=== PATIENT | male | born 1990 | race Caucasian/White ===

== ENCOUNTER 2017-09-30 19:54 | Emergency (ER) | payer SELFPAY ==
[~2017-09-30] VITALS: Ht 170.1 cm; Wt 80.3 kg
[2017-09-30 20:33] LABS: BILIRUBIN NEGATIVE (NEGATIVE); BLOOD NEGATIVE (NEGATIVE); CLARITY CLEAR (CLEAR); COLOR YELLOW (YELLOW); GLUCOSE NEGATIVE (NEGATIVE); KETONE NEGATIVE (NEGATIVE); LEUKO ESTERASE NEGATIVE (NEGATIVE); NITRITE NEGATIVE (NEGATIVE); SPECIFIC GRAVITY <= 1.005 (1.005-1.030); UROBILINOGEN 0.2 E.U./dl (0.2-1.0)
[2017-09-30 20:40] LABS: BACTERIA TRACE; EPITHELIAL CELLS 0-2; RBC 0-2 rbc/hpf (0-2); WBC 0-2 wbc/hpf (0-5)
[2017-09-30 20:45] LABS: BASO # 0.1 10*3/uL (0.0-0.1); BASO % 0.7 % (0.0-1.0); EOS # 0.2 10*3/uL (0.0-0.4); EOS % 2.4 % (1.0-4.0); HEMATOCRIT 47.1 % (42.0-52.0); HEMOGLOBIN 16.6 g/dl (14.0-18.0); LYMPH # 2.7 10*3/uL (1.3-4.4); MEAN CELL VOLUME 93.1 fl (80.0-94.0); MEAN CORPUSCULAR HGB 32.8 pg (27.0-31.0); MEAN CORPUSCULAR HGB CONC 35.2 g/dl (33.0-37.0); MONO # 0.4 10*3/uL (0.1-1.0); MONO % 5.1 % (3.0-9.0); NEUT # 4.9 10*3/uL (2.3-7.9); NEUT % 58.6 % (47.0-73.0); PLATELET COUNT AUTOMATED 260 10*3/uL (130-400); RED BLOOD COUNT 5.06 10*6/uL (4.50-5.90); RED CELL DISTRI WIDTH 12.2 % (0-14.5); WHITE BLOOD COUNT 8.3 10*3/uL (4.8-10.8)
[2017-09-30 21:03] LABS: ALBUMIN 4.4 gm/dl (3.1-4.5); ALKALINE PHOSPHATASE 94 U/L (45-117); BUN 9 mg/dl (7-24); CHLORIDE 106 mmol/L (98-107); CREATININE 0.89 mg/dL (0.70-1.30); POTASSIUM 3.9 mmol/L (3.5-5.1); SGOT/AST 32 IU/L (3-35); SGPT/ALT 45 U/L (12-78); SODIUM 142 mmol/L (136-145); TOTAL PROTEIN 8.2 gm/dL (6.4-8.2)
[2017-09-30 21:58] LABS: URINE AMPHETAMINES < 1000 (1000ng/ml); URINE BARBITURATES < 200 (200ng/ml); URINE BENZODIAZEPINES < 200 (200ng/ml); URINE CANNABINOIDS (THC) < 50 (50ng/ml); URINE COCAINE < 300 (300ng/ml); URINE METHADONE < 300 (300ng/ml); URINE OPIATES < 300 (300ng/ml)
[2017-09-30 22:01] LABS: URINE PHENCYCLIDINE < 25 (25ng/ml)
== END 2017-09-30 21:30 | disposition home or self-care (01) ==
LOC: ED 19:54
PROVIDERS: Emergency Medicine Emergency Medical Services
DX: N23 Unspecified renal colic (principal); F10.129 Alcohol abuse with intoxication, unspecified; F17.200 Nicotine dependence, unspecified, uncomplicated; Z88.8 Allergy status to other drugs, medicaments and biological substances; Z87.442 Personal history of urinary calculi

== ENCOUNTER 2017-10-21 17:02 | Emergency (ER) | payer SELFPAY ==
[~2017-10-21] VITALS: Ht 172.7 cm; Wt 77.1 kg
[2017-10-21] MEDS ORDERED: CYCLOBENZAPRINE5 M3 PO (18:35)
[2017-10-21] MEDS ORDERED: NAPROSYN500 MG PO (18:35)
== END 2017-10-21 18:06 | disposition home or self-care (01) ==
LOC: ED 17:02
DX: R07.89 Other chest pain (principal); M79.1 Myalgia; F17.200 Nicotine dependence, unspecified, uncomplicated; F10.10 Alcohol abuse, uncomplicated; Z91.09 Other allergy status, other than to drugs and biological substances

== ENCOUNTER 2018-02-19 09:57 | Emergency (ER) | payer SELFPAY ==
[~2018-02-19] VITALS: Ht 162.5 cm; Wt 81.6 kg
[~2018-02-19 09:57] MED LIST: CYCLOBENZAPRINE5 M3 PO; NAPROSYN500 MG PO
[2018-02-19 10:31] LABS: BASO # 0.1 10*3/uL (0.0-0.1); BASO % 0.4 % (0.0-1.0); EOS # 0.2 10*3/uL (0.0-0.4); EOS % 1.6 % (1.0-4.0); HEMATOCRIT 45.7 % (42.0-52.0); HEMOGLOBIN 16.3 g/dl (14.0-18.0); LYMPH # 1.9 10*3/uL (1.3-4.4); LYMPH % 13.3 % (27.0-41.0); MEAN CORPUSCULAR HGB 32.8 pg (27.0-31.0); MEAN CORPUSCULAR HGB CONC 35.7 g/dl (33.0-37.0); MONO # 1.3 10*3/uL (0.1-1.0); MONO % 9.1 % (3.0-9.0); NEUT # 10.6 10*3/uL (2.3-7.9); PLATELET COUNT AUTOMATED 211 10*3/uL (130-400); RED BLOOD COUNT 4.97 10*6/uL (4.50-5.90); RED CELL DISTRI WIDTH 11.9 % (0-14.5); WHITE BLOOD COUNT 14.2 10*3/uL (4.8-10.8)
[2018-02-19 10:49] LABS: ALBUMIN 3.9 gm/dl (3.1-4.5); ALKALINE PHOSPHATASE 88 U/L (45-117); BUN 17 mg/dl (7-24); CHLORIDE 102 mmol/L (98-107); CREATININE 0.99 mg/dL (0.70-1.30); SGOT/AST 22 IU/L (3-35); SGPT/ALT 42 U/L (12-78); SODIUM 135 mmol/L (136-145); TOTAL PROTEIN 7.8 gm/dL (6.4-8.2)
[2018-02-19 10:51] LABS: TROPONIN I < 0.015 ng/ml (<0.045)
[2018-02-19] MEDS ORDERED: ZITHROMAX250 MG PO (11:28)
== END 2018-02-19 11:43 | disposition left against medical advice (07) ==
LOC: ED 09:57
PROVIDERS: Nurse Practitioner
DX: J02.9 Acute pharyngitis, unspecified (principal)

== ENCOUNTER 2018-12-22 00:06 | Emergency (ER) | payer OTHER ==
[~2018-12-22] VITALS: Ht 177.8 cm; Wt 81.6 kg
[~2018-12-22 00:06] MED LIST changes: +CYCLOBENZAPRINE10 MG PO; +PREDNISONE50 MG PO; +ZITHROMAX250 MG PO
[2018-12-22 00:33] LABS: BASO # 0.1 10*3/uL (0.0-0.1); EOS # 0.4 10*3/uL (0.0-0.4); EOS % 4.9 % (1.0-4.0); HEMATOCRIT 45.7 % (42.0-52.0); HEMOGLOBIN 16.2 g/dl (14.0-18.0); LYMPH # 1.9 10*3/uL (1.3-4.4); LYMPH % 24.4 % (27.0-41.0); MEAN CELL VOLUME 94.2 fl (80.0-94.0); MEAN CORPUSCULAR HGB 33.4 pg (27.0-31.0); MEAN CORPUSCULAR HGB CONC 35.4 g/dl (33.0-37.0); MEAN PLATELET VOLUME 10.3 fl (9.6-12.3); MONO # 0.6 10*3/uL (0.1-1.0); MONO % 7.6 % (3.0-9.0); NEUT # 4.8 10*3/uL (2.3-7.9); PLATELET COUNT AUTOMATED 252 10*3/uL (130-400); RED BLOOD COUNT 4.85 10*6/uL (4.50-5.90); RED CELL DISTRI WIDTH 11.8 % (0-14.5); WHITE BLOOD COUNT 7.7 10*3/uL (4.8-10.8)
[2018-12-22 00:49] LABS: ALBUMIN 4.4 gm/dl (3.1-4.5); ALKALINE PHOSPHATASE 105 U/L (45-117); BUN 14 mg/dl (7-24); CHLORIDE 106 mmol/L (98-107); CREATININE 1.04 mg/dL (0.70-1.30); POTASSIUM 3.5 mmol/L (3.5-5.1); SGOT/AST 18 IU/L (3-35); SGPT/ALT 28 U/L (12-78); SODIUM 138 mmol/L (136-145); TOTAL PROTEIN 7.7 gm/dL (6.4-8.2)
[2018-12-22 00:52] LABS: ACETAMINOPHEN (TYLENOL) < 5.0 ug/ml (10-30); ETHYL ALCOHOL < 3.0 mg/dl (<3)
[2019-01-24] MEDS ORDERED: ZITHROMAX250 MG PO (23:58)
[2019-01-24] MEDS ORDERED: Motrin,Rufen800 MG PO (23:58)
[2019-01-29] MEDS ORDERED: TESSALON PERLE100 MG PO (21:40)
[2019-01-29] MEDS ORDERED: PREDNISONE20 M1 PO (21:40)
[2019-02-13] MEDS ORDERED: Motrin,Rufen800 MG PO (01:38)
[2019-02-19] MEDS ORDERED: PROAIR HFA8.5 GM INH (22:00)
[2019-02-19] MEDS ORDERED: VENTOLIN 02.5 MG/3 M INH (22:01)
[2019-02-19] MEDS ORDERED: PROTONIX40 MG PO (22:01)
[2019-03-30] MEDS ORDERED: CETIRIZINE10 MG PO (15:12)
[2019-03-30] MEDS ORDERED: FLONASE ALLERG9.9 ML NAS (15:12)
[2019-04-08] MEDS ORDERED: AMOXICILLIN500 M2 PO (21:16)
[2019-04-08] MEDS ORDERED: FLONASE ALLERG9.9 ML NAS (21:16)
[2019-04-08] MEDS ORDERED: NASAL DECONGEST30 MG PO (21:16)
== END 2018-12-22 01:49 | disposition home or self-care (01) ==
LOC: ED 00:06
PROVIDERS: Student in an Organized Health Care Education/Training Program
DX: F41.9 Anxiety disorder, unspecified (principal); G25.1 Drug-induced tremor; R00.2 Palpitations; F12.90 Cannabis use, unspecified, uncomplicated; Z91.048 Other nonmedicinal substance allergy status; Z87.442 Personal history of urinary calculi

== ENCOUNTER 2019-02-03 21:38 | Emergency (ER) | payer OTHER ==
[~2019-02-03] VITALS: Wt 86.2 kg
--- NOTE | ~2019-02-03 | EKG ---
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
[~2019-02-03 21:38] MED LIST changes: +Motrin,Rufen800 MG PO; +PREDNISONE20 M1 PO; +TESSALON PERLE100 MG PO
[2019-02-03 22:01] LABS: BASO % 0.5 % (0.0-1.0); EOS # 0.1 10*3/uL (0.0-0.4); EOS % 1.4 % (1.0-4.0); HEMATOCRIT 43.5 % (42.0-52.0); HEMOGLOBIN 15.2 g/dl (14.0-18.0); LYMPH # 2.3 10*3/uL (1.3-4.4); LYMPH % 27.7 % (27.0-41.0); MEAN CORPUSCULAR HGB 33.6 pg (27.0-31.0); MEAN CORPUSCULAR HGB CONC 34.9 g/dl (33.0-37.0); MONO # 0.7 10*3/uL (0.1-1.0); MONO % 7.8 % (3.0-9.0); NEUT # 5.2 10*3/uL (2.3-7.9); NEUT % 62.2 % (47.0-73.0); PLATELET COUNT AUTOMATED 230 10*3/uL (130-400); RED BLOOD COUNT 4.53 10*6/uL (4.50-5.90); RED CELL DISTRI WIDTH 11.9 % (0-14.5); WHITE BLOOD COUNT 8.4 10*3/uL (4.8-10.8)
[2019-02-03 22:17] LABS: ALBUMIN 3.8 gm/dl (3.1-4.5); ALKALINE PHOSPHATASE 90 U/L (45-117); BUN 16 mg/dl (7-24); CHLORIDE 107 mmol/L (98-107); POTASSIUM 3.4 mmol/L (3.5-5.1); SGOT/AST 27 IU/L (3-35); SGPT/ALT 28 U/L (12-78); SODIUM 142 mmol/L (136-145); TOTAL PROTEIN 7.1 gm/dL (6.4-8.2)
[2019-02-03 22:25] LABS: TROPONIN I < 0.015 ng/ml (<0.045)
[2019-02-04] MEDS ORDERED: PROTONIX40 MG PO (21:35)
[2019-02-04] MEDS ORDERED: HYDROXYZINE HCL25 MG PO (21:35)
[2019-02-13] MEDS ORDERED: Motrin,Rufen800 MG PO (01:38)
[2019-02-19] MEDS ORDERED: PROAIR HFA8.5 GM INH (22:00)
[2019-02-19] MEDS ORDERED: PROTONIX40 MG PO (22:01)
[2019-02-19] MEDS ORDERED: VENTOLIN 02.5 MG/3 M INH (22:01)
[2019-03-30] MEDS ORDERED: FLONASE ALLERG9.9 ML NAS (15:12)
[2019-03-30] MEDS ORDERED: CETIRIZINE10 MG PO (15:12)
[2019-04-08] MEDS ORDERED: NASAL DECONGEST30 MG PO (21:16)
[2019-04-08] MEDS ORDERED: AMOXICILLIN500 M2 PO (21:16)
[2019-04-08] MEDS ORDERED: FLONASE ALLERG9.9 ML NAS (21:16)
== END 2019-02-03 22:45 | disposition home or self-care (01) ==
LOC: ED 21:38
PROVIDERS: Student in an Organized Health Care Education/Training Program
DX: R07.89 Other chest pain (principal); Z91.048 Other nonmedicinal substance allergy status; Z79.899 Other long term (current) drug therapy

== ENCOUNTER 2019-02-04 20:08 | Emergency (ER) | payer OTHER ==
[~2019-02-04] VITALS: Wt 86.2 kg
[2019-02-04 20:50] LABS: BASO % 0.4 % (0.0-1.0); EOS # 0.1 10*3/uL (0.0-0.4); EOS % 1.2 % (1.0-4.0); HEMATOCRIT 43.7 % (42.0-52.0); HEMOGLOBIN 15.2 g/dl (14.0-18.0); LYMPH # 2.4 10*3/uL (1.3-4.4); LYMPH % 26.2 % (27.0-41.0); MEAN CELL VOLUME 96.9 fl (80.0-94.0); MEAN CORPUSCULAR HGB 33.7 pg (27.0-31.0); MEAN CORPUSCULAR HGB CONC 34.8 g/dl (33.0-37.0); MEAN PLATELET VOLUME 10.7 fl (9.6-12.3); MONO # 0.7 10*3/uL (0.1-1.0); MONO % 7.7 % (3.0-9.0); NEUT # 5.9 10*3/uL (2.3-7.9); NEUT % 64.3 % (47.0-73.0); PLATELET COUNT AUTOMATED 243 10*3/uL (130-400); RED BLOOD COUNT 4.51 10*6/uL (4.50-5.90); RED CELL DISTRI WIDTH 11.9 % (0-14.5); WHITE BLOOD COUNT 9.2 10*3/uL (4.8-10.8)
[2019-02-04 21:03] LABS: ALBUMIN 4.1 gm/dl (3.1-4.5); ALKALINE PHOSPHATASE 85 U/L (45-117); BUN 14 mg/dl (7-24); CHLORIDE 105 mmol/L (98-107); CREATININE 0.76 mg/dL (0.70-1.30); LIPASE 54 U/L (73-393); POTASSIUM 3.8 mmol/L (3.5-5.1); SGOT/AST 27 IU/L (3-35); SGPT/ALT 33 U/L (12-78); SODIUM 139 mmol/L (136-145); TOTAL PROTEIN 7.5 gm/dL (6.4-8.2)
[2019-02-04] MEDS ORDERED: HYDROXYZINE HCL25 MG PO (21:35)
[2019-02-04] MEDS ORDERED: PROTONIX40 MG PO (21:35)
[2019-02-13] MEDS ORDERED: Motrin,Rufen800 MG PO (01:38)
[2019-02-19] MEDS ORDERED: PROAIR HFA8.5 GM INH (22:00)
[2019-02-19] MEDS ORDERED: VENTOLIN 02.5 MG/3 M INH (22:01)
[2019-02-19] MEDS ORDERED: PROTONIX40 MG PO (22:01)
[2019-03-30] MEDS ORDERED: FLONASE ALLERG9.9 ML NAS (15:12)
[2019-03-30] MEDS ORDERED: CETIRIZINE10 MG PO (15:12)
[2019-04-08] MEDS ORDERED: NASAL DECONGEST30 MG PO (21:16)
[2019-04-08] MEDS ORDERED: AMOXICILLIN500 M2 PO (21:16)
[2019-04-08] MEDS ORDERED: FLONASE ALLERG9.9 ML NAS (21:16)
== END 2019-02-04 21:36 | disposition home or self-care (01) ==
LOC: ED 20:08
PROVIDERS: Physician Assistant
DX: F41.9 Anxiety disorder, unspecified (principal); R05 Cough; R07.9 Chest pain, unspecified; R10.9 Unspecified abdominal pain; F17.200 Nicotine dependence, unspecified, uncomplicated; Z91.048 Other nonmedicinal substance allergy status; Z79.899 Other long term (current) drug therapy

== ENCOUNTER 2019-02-07 22:11 | Emergency (ER) | payer OTHER ==
[~2019-02-07] VITALS: Ht 175.2 cm; Wt 86.2 kg
[~2019-02-07 22:11] MED LIST changes: +HYDROXYZINE HCL25 MG PO; +PROTONIX40 MG PO
[2019-02-07] MEDS ORDERED: AMOXICILLIN500 M2 PO (23:42)
[2019-02-07] MEDS ORDERED: PROAIR HFA8.5 GM INH (23:42)
[2019-02-13] MEDS ORDERED: Motrin,Rufen800 MG PO (01:38)
[2019-02-19] MEDS ORDERED: PROAIR HFA8.5 GM INH (22:00)
[2019-02-19] MEDS ORDERED: PROTONIX40 MG PO (22:01)
[2019-02-19] MEDS ORDERED: VENTOLIN 02.5 MG/3 M INH (22:01)
[2019-03-30] MEDS ORDERED: CETIRIZINE10 MG PO (15:12)
[2019-03-30] MEDS ORDERED: FLONASE ALLERG9.9 ML NAS (15:12)
[2019-04-08] MEDS ORDERED: FLONASE ALLERG9.9 ML NAS (21:16)
[2019-04-08] MEDS ORDERED: AMOXICILLIN500 M2 PO (21:16)
[2019-04-08] MEDS ORDERED: NASAL DECONGEST30 MG PO (21:16)
== END 2019-02-08 00:25 | disposition home or self-care (01) ==
LOC: ED 22:11
DX: J20.9 Acute bronchitis, unspecified (principal); H65.92 Unspecified nonsuppurative otitis media, left ear; F17.200 Nicotine dependence, unspecified, uncomplicated

== ENCOUNTER 2019-02-16 04:39 | Emergency (ER) | payer OTHER ==
[~2019-02-16] VITALS: Ht 175.2 cm; Wt 86.2 kg
--- NOTE | ~2019-02-16 | EKG ---
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1990 Requested By: TRISTAN FERNANDEZ Order Number: [id number] Reading MD: Giovanny Dykes Measurements Intervals [place] Rate: 104 P: 64 MS: 157 QRS: 57 QRSD: 87 T: -16 QT: 328 QTc: 432 Interpretive Statements Sinus tachycardia LAE, consider biatrial enlargement Anterior infarct, old Borderline T abnormalities, inferior leads Compared to ECG 02/03/2019 21:51:38 T-wave abnormality now present Sinus rhythm no longer present Myocardial infarct finding still present Electronically Signed On 02-18-2019 4:51:22 PDT by Giovanny Dykes CM:EKGRPT:ELECTROCARDIOGRAM REPORT [id number] TRISTAN CHRISTOPHER DRAFT REPORT TRISTAN FERNANDEZ DO
[~2019-02-16 04:39] MED LIST changes: +AMOXICILLIN500 M2 PO; +PROAIR HFA8.5 GM INH
[2019-02-16 05:48] LABS: BASO # 0.1 10*3/uL (0.0-0.1); BASO % 0.5 % (0.0-1.0); EOS # 0.2 10*3/uL (0.0-0.4); EOS % 1.5 % (1.0-4.0); HEMATOCRIT 50.3 % (42.0-52.0); LYMPH # 2.3 10*3/uL (1.3-4.4); LYMPH % 22.9 % (27.0-41.0); MEAN CELL VOLUME 97.5 fl (80.0-94.0); MEAN CORPUSCULAR HGB 32.9 pg (27.0-31.0); MEAN CORPUSCULAR HGB CONC 33.8 g/dl (33.0-37.0); MEAN PLATELET VOLUME 10.8 fl (9.6-12.3); MONO # 0.4 10*3/uL (0.1-1.0); MONO % 4.2 % (3.0-9.0); NEUT % 70.7 % (47.0-73.0); PLATELET COUNT AUTOMATED 245 10*3/uL (130-400); RED BLOOD COUNT 5.16 10*6/uL (4.50-5.90); RED CELL DISTRI WIDTH 11.8 % (0-14.5); WHITE BLOOD COUNT 9.9 10*3/uL (4.8-10.8)
[2019-02-16 06:12] LABS: ALBUMIN 4.6 gm/dl (3.1-4.5); ALKALINE PHOSPHATASE 93 U/L (45-117); BUN 9 mg/dl (7-24); CHLORIDE 105 mmol/L (98-107); CREATININE 0.87 mg/dL (0.70-1.30); POTASSIUM 3.9 mmol/L (3.5-5.1); SGOT/AST 24 IU/L (3-35); SGPT/ALT 29 U/L (12-78); SODIUM 140 mmol/L (136-145); TOTAL PROTEIN 8.5 gm/dL (6.4-8.2)
[2019-02-16 06:17] LABS: ACT PARTIAL THROMBO TIME 24.7 SECONDS (20.8-31.5)
[2019-02-16 06:18] LABS: TROPONIN I < 0.015 ng/ml (<0.045)
[2019-02-19] MEDS ORDERED: PROAIR HFA8.5 GM INH (22:00)
[2019-02-19] MEDS ORDERED: VENTOLIN 02.5 MG/3 M INH (22:01)
[2019-02-19] MEDS ORDERED: PROTONIX40 MG PO (22:01)
[2019-03-30] MEDS ORDERED: FLONASE ALLERG9.9 ML NAS (15:12)
[2019-03-30] MEDS ORDERED: CETIRIZINE10 MG PO (15:12)
[2019-04-08] MEDS ORDERED: FLONASE ALLERG9.9 ML NAS (21:16)
[2019-04-08] MEDS ORDERED: AMOXICILLIN500 M2 PO (21:16)
[2019-04-08] MEDS ORDERED: NASAL DECONGEST30 MG PO (21:16)
== END 2019-02-16 06:34 | disposition home or self-care (01) ==
LOC: ED 04:39
PROVIDERS: Student in an Organized Health Care Education/Training Program
DX: R06.02 Shortness of breath (principal); R07.89 Other chest pain; Z91.048 Other nonmedicinal substance allergy status; Z87.442 Personal history of urinary calculi

== ENCOUNTER 2019-02-16 08:14 | Emergency (ER) | payer OTHER ==
[~2019-02-16] VITALS: Ht 175.2 cm; Wt 86.2 kg
--- NOTE | ~2019-02-16 | EKG ---
[place], [place] ELECTROCARDIOGRAM REPORT NAME: CRISTOBAL BURGESS UNIT #: [id number] ROOM: DOCTOR: EPIPHANY DRAFT REPORT BIRTHDATE: [birth year] 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: Katt Martinez : 1990 Requested By: KOLTON FARAH Order Number: [id number] Reading MD: Giovanny Dykes Measurements Intervals [place] Rate: 97 P: 61 [place]: 144 QRS: 61 QRSD: 89 T: -2 QT: 330 QTc: 419 Interpretive Statements Sinus rhythm LAE, consider biatrial enlargement Probable anteroseptal infarct, old Borderline T abnormalities, inferior leads Compared to ECG 02/03/2019 21:51:38 T-wave abnormality now present Myocardial infarct finding still present Electronically Signed On 02-18-2019 4:51:58 PDT by Giovanny Dykes CM:EKGRPT:ELECTROCARDIOGRAM REPORT [id number] KOLTON PEREZ DRAFT REPORT KOLTON FARAH M.D.
--- NOTE | ~2019-02-16 | EKG ---
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
[2019-02-16 08:29] LABS: BASO # 0.1 10*3/uL (0.0-0.1); BASO % 0.5 % (0.0-1.0); EOS # 0.1 10*3/uL (0.0-0.4); HEMATOCRIT 48.2 % (42.0-52.0); HEMOGLOBIN 16.9 g/dl (14.0-18.0); LYMPH # 1.8 10*3/uL (1.3-4.4); LYMPH % 16.5 % (27.0-41.0); MEAN CELL VOLUME 95.6 fl (80.0-94.0); MEAN CORPUSCULAR HGB 33.5 pg (27.0-31.0); MEAN CORPUSCULAR HGB CONC 35.1 g/dl (33.0-37.0); MONO # 0.5 10*3/uL (0.1-1.0); MONO % 4.6 % (3.0-9.0); NEUT # 8.6 10*3/uL (2.3-7.9); NEUT % 77.2 % (47.0-73.0); PLATELET COUNT AUTOMATED 280 10*3/uL (130-400); RED BLOOD COUNT 5.04 10*6/uL (4.50-5.90); RED CELL DISTRI WIDTH 11.8 % (0-14.5); WHITE BLOOD COUNT 11.1 10*3/uL (4.8-10.8)
[2019-02-16 08:57] LABS: ALBUMIN 4.6 gm/dl (3.1-4.5); ALKALINE PHOSPHATASE 100 U/L (45-117); BUN 10 mg/dl (7-24); CHLORIDE 106 mmol/L (98-107); POTASSIUM 4.1 mmol/L (3.5-5.1); SGOT/AST 29 IU/L (3-35); SGPT/ALT 33 U/L (12-78); SODIUM 140 mmol/L (136-145); TOTAL PROTEIN 8.4 gm/dL (6.4-8.2)
[2019-02-16 09:09] LABS: TROPONIN I < 0.015 ng/ml (<0.045)
[2019-02-16 09:17] LABS: ACT PARTIAL THROMBO TIME 25.2 SECONDS (20.8-31.5)
[2019-02-19] MEDS ORDERED: PROAIR HFA8.5 GM INH (22:00)
[2019-02-19] MEDS ORDERED: PROTONIX40 MG PO (22:01)
[2019-02-19] MEDS ORDERED: VENTOLIN 02.5 MG/3 M INH (22:01)
[2019-03-30] MEDS ORDERED: FLONASE ALLERG9.9 ML NAS (15:12)
[2019-03-30] MEDS ORDERED: CETIRIZINE10 MG PO (15:12)
[2019-04-08] MEDS ORDERED: FLONASE ALLERG9.9 ML NAS (21:16)
[2019-04-08] MEDS ORDERED: NASAL DECONGEST30 MG PO (21:16)
[2019-04-08] MEDS ORDERED: AMOXICILLIN500 M2 PO (21:16)
== END 2019-02-16 11:30 | disposition home or self-care (01) ==
LOC: ED 08:14
PROVIDERS: Emergency Medicine
DX: F41.9 Anxiety disorder, unspecified (principal); R07.89 Other chest pain

== ENCOUNTER 2019-02-17 21:45 | Emergency (ER) | payer OTHER ==
[~2019-02-17] VITALS: Ht 175.2 cm; Wt 86.2 kg
[2019-02-19] MEDS ORDERED: PROAIR HFA8.5 GM INH (22:00)
[2019-02-19] MEDS ORDERED: PROTONIX40 MG PO (22:01)
[2019-02-19] MEDS ORDERED: VENTOLIN 02.5 MG/3 M INH (22:01)
[2019-03-30] MEDS ORDERED: CETIRIZINE10 MG PO (15:12)
[2019-03-30] MEDS ORDERED: FLONASE ALLERG9.9 ML NAS (15:12)
[2019-04-08] MEDS ORDERED: NASAL DECONGEST30 MG PO (21:16)
[2019-04-08] MEDS ORDERED: FLONASE ALLERG9.9 ML NAS (21:16)
[2019-04-08] MEDS ORDERED: AMOXICILLIN500 M2 PO (21:16)
== END 2019-02-18 01:45 | disposition home or self-care (01) ==
LOC: ED 21:45
DX: F41.9 Anxiety disorder, unspecified (principal); Z91.048 Other nonmedicinal substance allergy status

== ENCOUNTER 2019-05-16 22:16 | Emergency (ER) | payer OTHER ==
[~2019-05-16] VITALS: Ht 180.3 cm; Wt 83.9 kg
--- NOTE | ~2019-05-16 | EKG ---
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
[~2019-05-16 22:16] MED LIST changes: +CETIRIZINE10 MG PO; +FLONASE ALLERG9.9 ML NAS; +NASAL DECONGEST30 MG PO; +VENTOLIN 02.5 MG/3 M INH
[2019-05-16 22:40] LABS: BASO # 0.1 10*3/uL (0.0-0.1); BASO % 0.7 % (0.0-1.0); EOS # 0.4 10*3/uL (0.0-0.4); EOS % 3.5 % (1.0-4.0); HEMATOCRIT 46.5 % (42.0-52.0); HEMOGLOBIN 16.1 g/dl (14.0-18.0); LYMPH # 2.7 10*3/uL (1.3-4.4); LYMPH % 26.7 % (27.0-41.0); MEAN CELL VOLUME 95.5 fl (80.0-94.0); MEAN CORPUSCULAR HGB 33.1 pg (27.0-31.0); MEAN CORPUSCULAR HGB CONC 34.6 g/dl (33.0-37.0); MEAN PLATELET VOLUME 10.2 fl (9.6-12.3); MONO # 0.8 10*3/uL (0.1-1.0); MONO % 7.5 % (3.0-9.0); NEUT # 6.2 10*3/uL (2.3-7.9); NEUT % 61.1 % (47.0-73.0); PLATELET COUNT AUTOMATED 226 10*3/uL (130-400); RED BLOOD COUNT 4.87 10*6/uL (4.50-5.90); WHITE BLOOD COUNT 10.2 10*3/uL (4.8-10.8)
[2019-05-16 22:53] LABS: ACT PARTIAL THROMBO TIME 27.1 SECONDS (20.0-32.1)
[2019-05-16 23:01] LABS: ALKALINE PHOSPHATASE 85 U/L (45-117); BUN 19 mg/dl (7-24); CHLORIDE 104 mmol/L (98-107); CREATININE 0.79 mg/dL (0.70-1.30); POTASSIUM 3.6 mmol/L (3.5-5.1); SGOT/AST 19 IU/L (3-35); SGPT/ALT 32 U/L (12-78); SODIUM 140 mmol/L (136-145); TOTAL PROTEIN 7.4 gm/dL (6.4-8.2)
[2019-05-16 23:07] LABS: TROPONIN I < 0.015 ng/ml (<0.045)
[2019-05-17] MEDS ORDERED: ZESTRIL10 MG PO (09:10)
== END 2019-05-17 | disposition home or self-care (01) ==
LOC: ED 22:16
PROVIDERS: Student in an Organized Health Care Education/Training Program
DX: R07.89 Other chest pain (principal)

== ENCOUNTER 2019-05-18 03:06 | Emergency (ER) | payer OTHER ==
[~2019-05-18] VITALS: Ht 175.2 cm; Wt 90.7 kg
--- NOTE | ~2019-05-18 | EKG ---
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
[~2019-05-18 03:06] MED LIST changes: +ZESTRIL10 MG PO
[2019-05-18 03:37] LABS: BASO # 0.1 10*3/uL (0.0-0.1); BASO % 0.7 % (0.0-1.0); EOS # 0.3 10*3/uL (0.0-0.4); EOS % 4.5 % (1.0-4.0); HEMATOCRIT 44.2 % (42.0-52.0); HEMOGLOBIN 14.9 g/dl (14.0-18.0); LYMPH # 2.3 10*3/uL (1.3-4.4); LYMPH % 32.2 % (27.0-41.0); MEAN CELL VOLUME 97.1 fl (80.0-94.0); MEAN CORPUSCULAR HGB 32.7 pg (27.0-31.0); MEAN CORPUSCULAR HGB CONC 33.7 g/dl (33.0-37.0); MEAN PLATELET VOLUME 9.7 fl (9.6-12.3); MONO # 0.6 10*3/uL (0.1-1.0); MONO % 8.8 % (3.0-9.0); NEUT # 3.8 10*3/uL (2.3-7.9); NEUT % 53.5 % (47.0-73.0); PLATELET COUNT AUTOMATED 192 10*3/uL (130-400); RED BLOOD COUNT 4.55 10*6/uL (4.50-5.90); RED CELL DISTRI WIDTH 12.2 % (0-14.5); WHITE BLOOD COUNT 7.2 10*3/uL (4.8-10.8)
[2019-05-18 03:48] LABS: ACT PARTIAL THROMBO TIME 26.3 SECONDS (20.0-32.1)
[2019-05-18 03:54] LABS: ALBUMIN 3.6 gm/dl (3.1-4.5); ALKALINE PHOSPHATASE 75 U/L (45-117); BUN 14 mg/dl (7-24); CHLORIDE 105 mmol/L (98-107); CREATININE 0.78 mg/dL (0.70-1.30); SGOT/AST 19 IU/L (3-35); SGPT/ALT 30 U/L (12-78); SODIUM 141 mmol/L (136-145); TOTAL PROTEIN 6.7 gm/dL (6.4-8.2)
[2019-05-18 03:55] LABS: TROPONIN I < 0.015 ng/ml (<0.045)
== END 2019-05-18 04:10 | disposition home or self-care (01) ==
LOC: ED 03:06
PROVIDERS: Student in an Organized Health Care Education/Training Program
DX: R07.9 Chest pain, unspecified (principal); I10 Essential (primary) hypertension; Z91.048 Other nonmedicinal substance allergy status; Z79.899 Other long term (current) drug therapy

== ENCOUNTER 2019-05-27 10:31 | Emergency (ER) | payer OTHER ==
[~2019-05-27] VITALS: Ht 175.2 cm; Wt 86.2 kg
[2019-05-27] MEDS ORDERED: Motrin,Rufen800 MG PO (12:23)
== END 2019-05-27 12:20 | disposition home or self-care (01) ==
LOC: ED 10:31
DX: S02.2XXA Fracture of nasal bones, initial encounter for closed fracture (principal); Z91.048 Other nonmedicinal substance allergy status; Z79.899 Other long term (current) drug therapy; W22.8XXA Striking against or struck by other objects, initial encounter; Y93.89 Activity, other specified; Y92.89 Other specified places as the place of occurrence of the external cause; Y99.8 Other external cause status

== ENCOUNTER 2019-06-12 16:08 | Emergency (ER) | payer OTHER ==
[~2019-06-12] VITALS: Ht 175.2 cm; Wt 86.2 kg
--- NOTE | ~2019-06-12 | EKG ---
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
[2019-06-12 16:20] LABS: BASO # 0.1 10*3/uL (0.0-0.1); EOS # 0.4 10*3/uL (0.0-0.4); EOS % 3.8 % (1.0-4.0); HEMATOCRIT 46.3 % (42.0-52.0); HEMOGLOBIN 16.4 g/dl (14.0-18.0); LYMPH # 2.9 10*3/uL (1.3-4.4); MEAN CELL VOLUME 95.9 fl (80.0-94.0); MEAN CORPUSCULAR HGB CONC 35.4 g/dl (33.0-37.0); MEAN PLATELET VOLUME 10.1 fl (9.6-12.3); MONO # 0.7 10*3/uL (0.1-1.0); MONO % 6.2 % (3.0-9.0); NEUT # 7.3 10*3/uL (2.3-7.9); NEUT % 63.6 % (47.0-73.0); PLATELET COUNT AUTOMATED 264 10*3/uL (130-400); RED BLOOD COUNT 4.83 10*6/uL (4.50-5.90); WHITE BLOOD COUNT 11.4 10*3/uL (4.8-10.8)
[2019-06-12 16:34] LABS: ACT PARTIAL THROMBO TIME 26.5 SECONDS (20.0-32.1); INTERNATIONAL NORM RATIO 0.9 (2.0-3.5)
[2019-06-12 16:37] LABS: ALBUMIN 4.3 gm/dl (3.1-4.5); ALKALINE PHOSPHATASE 100 U/L (45-117); BUN 16 mg/dl (7-24); CHLORIDE 100 mmol/L (98-107); CREATININE 1.11 mg/dL (0.70-1.30); SGOT/AST 25 IU/L (3-35); SGPT/ALT 31 U/L (12-78); SODIUM 134 mmol/L (136-145)
[2019-06-12 16:42] LABS: TROPONIN I < 0.015 ng/ml (<0.045)
== END 2019-06-12 17:47 | disposition home or self-care (01) ==
LOC: ED 16:08
PROVIDERS: Emergency Medicine
DX: R07.89 Other chest pain (principal); I10 Essential (primary) hypertension; F41.9 Anxiety disorder, unspecified; F17.200 Nicotine dependence, unspecified, uncomplicated; Z91.048 Other nonmedicinal substance allergy status; Z79.899 Other long term (current) drug therapy

== ENCOUNTER 2019-06-19 08:56 | Emergency (ER) | payer OTHER ==
[~2019-06-19] VITALS: Ht 175.2 cm; Wt 86.2 kg
[2019-06-19] MEDS ORDERED: PRINIVIL10 MG PO (09:04)
[2019-06-19] MEDS ORDERED: ZOFRAN4 MG PO (09:04)
== END 2019-06-19 09:09 | disposition home or self-care (01) ==
LOC: ED 08:56
DX: I10 Essential (primary) hypertension (principal); R11.2 Nausea with vomiting, unspecified; R51 Headache; Z76.0 Encounter for issue of repeat prescription

== ENCOUNTER 2019-07-17 17:18 | Emergency (ER) | payer OTHER ==
[~2019-07-17] VITALS: Ht 175.2 cm; Wt 90.7 kg
--- NOTE | ~2019-07-17 | EKG ---
[place], [place] ELECTROCARDIOGRAM REPORT NAME: CRISTOBAL BURGESS UNIT #: [id number] ROOM: DOCTOR: EPIPHANY DRAFT REPORT BIRTHDATE: [birth year] [facility] Test Date: 2019-07-17 Test Time: 18:00:06 Pat Name: CRISTOBAL BURGESS Department: Room: Gender: Marketing Content Specialist: Bernie Gilliam : 1990 Requested By: AUSTEN HUMMEL PA-C Order Number: [id number] Reading MD: Matthieu Jara MD Measurements Intervals [place] Rate: 68 P: 13 [place]: 142 QRS: 51 QRSD: 90 T: 4 QT: 390 QTc: 415 Interpretive Statements Sinus rhythm Baseline wander in lead(s) V2 Compared to ECG 06/12/2019 16:14:28 Myocardial infarct finding no longer present Electronically Signed On 07-19-2019 7:45:35 PDT by Matthieu Jara MD CM:EKGRPT:ELECTROCARDIOGRAM REPORT [id number] AUSTEN HUMMEL PA-C EPIPHANY DRAFT REPORT AUSTEN UHMMEL PA-C
[~2019-07-17 17:18] MED LIST changes: +PRINIVIL10 MG PO; +ZOFRAN4 MG PO
[2019-07-17 18:10] LABS: BASO # 0.1 10*3/uL (0.0-0.1); BASO % 0.8 % (0.0-1.0); EOS # 0.3 10*3/uL (0.0-0.4); EOS % 3.5 % (1.0-4.0); HEMATOCRIT 44.9 % (42.0-52.0); HEMOGLOBIN 15.6 g/dl (14.0-18.0); LYMPH # 1.6 10*3/uL (1.3-4.4); LYMPH % 21.5 % (27.0-41.0); MEAN CELL VOLUME 94.3 fl (80.0-94.0); MEAN CORPUSCULAR HGB 32.8 pg (27.0-31.0); MEAN CORPUSCULAR HGB CONC 34.7 g/dl (33.0-37.0); MEAN PLATELET VOLUME 10.4 fl (9.6-12.3); MONO # 0.6 10*3/uL (0.1-1.0); MONO % 8.3 % (3.0-9.0); NEUT # 4.8 10*3/uL (2.3-7.9); NEUT % 65.6 % (47.0-73.0); PLATELET COUNT AUTOMATED 190 10*3/uL (130-400); RED BLOOD COUNT 4.76 10*6/uL (4.50-5.90); RED CELL DISTRI WIDTH 11.6 % (0-14.5); WHITE BLOOD COUNT 7.4 10*3/uL (4.8-10.8)
[2019-07-17 18:27] LABS: ALKALINE PHOSPHATASE 98 U/L (45-117); BUN 16 mg/dl (7-24); CHLORIDE 106 mmol/L (98-107); CREATININE 0.93 mg/dL (0.70-1.30); POTASSIUM 3.7 mmol/L (3.5-5.1); SGOT/AST 29 IU/L (3-35); SGPT/ALT 36 U/L (12-78); SODIUM 138 mmol/L (136-145); TOTAL PROTEIN 7.2 gm/dL (6.4-8.2)
[2019-07-17 18:33] LABS: ETHYL ALCOHOL < 3.0 mg/dl (<3); TROPONIN I < 0.015 ng/ml (<0.045)
[2019-07-17] MEDS ORDERED: LISINOPRIL10 M1 PO (19:16)
== END 2019-07-17 19:17 | disposition home or self-care (01) ==
LOC: ED 17:18
PROVIDERS: Physician Assistant
DX: F12.90 Cannabis use, unspecified, uncomplicated (principal); R42 Dizziness and giddiness; R53.1 Weakness; F41.9 Anxiety disorder, unspecified; I10 Essential (primary) hypertension; F17.200 Nicotine dependence, unspecified, uncomplicated; Z91.048 Other nonmedicinal substance allergy status; Z79.899 Other long term (current) drug therapy

== ENCOUNTER 2019-08-06 11:10 | Emergency (ER) | payer OTHER ==
[~2019-08-06] VITALS: Ht 175.2 cm; Wt 78.5 kg
[~2019-08-06 11:10] MED LIST changes: +LISINOPRIL10 M1 PO
[2019-08-06] MEDS ORDERED: VISTARIL25 M2 PO (11:48)
== END 2019-08-06 13:28 | disposition home or self-care (01) ==
LOC: ED 11:10
DX: F41.9 Anxiety disorder, unspecified (principal); R07.89 Other chest pain; R06.02 Shortness of breath; I10 Essential (primary) hypertension

== ENCOUNTER 2019-09-28 23:26 | Emergency (ER) | payer OTHER ==
[~2019-09-28] VITALS: Ht 180.3 cm; Wt 88.5 kg
--- NOTE | ~2019-09-28 | EKG ---
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
[~2019-09-28 23:26] MED LIST changes: +VISTARIL25 M2 PO
[2019-09-29 00:08] LABS: BASO # 0.1 10*3/uL (0.0-0.1); BASO % 0.7 % (0.0-1.0); EOS # 0.4 10*3/uL (0.0-0.4); EOS % 4.2 % (1.0-4.0); HEMATOCRIT 39.8 % (42.0-52.0); HEMOGLOBIN 13.4 g/dl (14.0-18.0); LYMPH # 2.6 10*3/uL (1.3-4.4); LYMPH % 31.3 % (27.0-41.0); MEAN CELL VOLUME 97.5 fl (80.0-94.0); MEAN CORPUSCULAR HGB 32.8 pg (27.0-31.0); MEAN CORPUSCULAR HGB CONC 33.7 g/dl (33.0-37.0); MEAN PLATELET VOLUME 10.3 fl (9.6-12.3); MONO # 0.7 10*3/uL (0.1-1.0); MONO % 8.5 % (3.0-9.0); NEUT # 4.6 10*3/uL (2.3-7.9); NEUT % 55.1 % (47.0-73.0); PLATELET COUNT AUTOMATED 194 10*3/uL (130-400); RED BLOOD COUNT 4.08 10*6/uL (4.50-5.90); WHITE BLOOD COUNT 8.3 10*3/uL (4.8-10.8)
[2019-09-29 00:24] LABS: ALBUMIN 3.7 gm/dl (3.1-4.5); ALKALINE PHOSPHATASE 82 U/L (45-117); BUN 15 mg/dl (7-24); CHLORIDE 107 mmol/L (98-107); CREATININE 0.94 mg/dL (0.70-1.30); POTASSIUM 3.6 mmol/L (3.5-5.1); SGOT/AST 17 IU/L (3-35); SGPT/ALT 23 U/L (12-78); SODIUM 140 mmol/L (136-145); TOTAL PROTEIN 6.5 gm/dL (6.4-8.2)
[2019-09-29 00:36] LABS: TROPONIN I < 0.015 ng/ml (<0.045)
== END 2019-09-29 00:32 | disposition left against medical advice (07) ==
LOC: ED 23:26
PROVIDERS: Emergency Medicine
DX: R42 Dizziness and giddiness (principal); I10 Essential (primary) hypertension; F41.9 Anxiety disorder, unspecified; F17.200 Nicotine dependence, unspecified, uncomplicated; Z91.048 Other nonmedicinal substance allergy status; Z79.899 Other long term (current) drug therapy

== ENCOUNTER 2019-09-29 20:29 | Emergency (ER) | payer OTHER ==
[~2019-09-29] VITALS: Ht 175.2 cm; Wt 86.2 kg
--- NOTE | ~2019-09-29 | EKG ---
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
[2019-09-29 20:54] LABS: BASO # 0.1 10*3/uL (0.0-0.1); BASO % 0.9 % (0.0-1.0); EOS # 0.3 10*3/uL (0.0-0.4); EOS % 3.9 % (1.0-4.0); HEMOGLOBIN 13.5 g/dl (14.0-18.0); LYMPH % 29.2 % (27.0-41.0); MEAN CORPUSCULAR HGB 33.1 pg (27.0-31.0); MEAN CORPUSCULAR HGB CONC 33.8 g/dl (33.0-37.0); MEAN PLATELET VOLUME 10.3 fl (9.6-12.3); MONO # 0.5 10*3/uL (0.1-1.0); MONO % 6.7 % (3.0-9.0); NEUT # 4.1 10*3/uL (2.3-7.9); NEUT % 59.2 % (47.0-73.0); PLATELET COUNT AUTOMATED 193 10*3/uL (130-400); RED BLOOD COUNT 4.08 10*6/uL (4.50-5.90); RED CELL DISTRI WIDTH 11.9 % (0-14.5); WHITE BLOOD COUNT 6.9 10*3/uL (4.8-10.8)
[2019-09-29 21:06] LABS: ACT PARTIAL THROMBO TIME 27.6 SECONDS (20.0-32.1)
[2019-09-29 21:19] LABS: ALBUMIN 3.8 gm/dl (3.1-4.5); ALKALINE PHOSPHATASE 79 U/L (45-117); BUN 16 mg/dl (7-24); CHLORIDE 109 mmol/L (98-107); CREATININE 0.92 mg/dL (0.70-1.30); POTASSIUM 3.7 mmol/L (3.5-5.1); SGOT/AST 17 IU/L (3-35); SGPT/ALT 23 U/L (12-78); SODIUM 141 mmol/L (136-145); TOTAL PROTEIN 6.7 gm/dL (6.4-8.2); TROPONIN I < 0.015 ng/ml (<0.045)
[2019-09-29 22:26] LABS: BILIRUBIN NEGATIVE (NEGATIVE); BLOOD NEGATIVE (NEGATIVE); CLARITY SL CLOUDY (CLEAR); COLOR YELLOW (YELLOW); GLUCOSE NEGATIVE (NEGATIVE); KETONE NEGATIVE (NEGATIVE); LEUKO ESTERASE NEGATIVE (NEGATIVE); NITRITE NEGATIVE (NEGATIVE); SPECIFIC GRAVITY 1.015 (1.005-1.030)
[2019-09-29 22:35] LABS: URINE AMPHETAMINES < 1000 (1000ng/ml); URINE BARBITURATES < 200 (200ng/ml); URINE BENZODIAZEPINES < 200 (200ng/ml); URINE CANNABINOIDS (THC) > 50 (50ng/ml); URINE COCAINE < 300 (300ng/ml); URINE METHADONE < 300 (300ng/ml); URINE OPIATES < 300 (300ng/ml)
[2019-09-29 22:39] LABS: URINE PHENCYCLIDINE < 25 (25ng/ml)
[2019-09-29 23:12] LABS: RBC 0-2 rbc/hpf (0-2); WBC 0-2 wbc/hpf (0-5)
== END 2019-09-29 23:28 | disposition left against medical advice (07) ==
LOC: ED 20:29
PROVIDERS: Emergency Medicine
DX: R07.9 Chest pain, unspecified (principal); I10 Essential (primary) hypertension; F17.200 Nicotine dependence, unspecified, uncomplicated; Z91.048 Other nonmedicinal substance allergy status; Z79.899 Other long term (current) drug therapy

== ENCOUNTER 2019-10-03 03:49 | Emergency (ER) | payer OTHER ==
[~2019-10-03] VITALS: Ht 175.2 cm; Wt 81.6 kg
[2019-10-03 04:13] LABS: BASO # 0.1 10*3/uL (0.0-0.1); BASO % 0.7 % (0.0-1.0); EOS # 0.2 10*3/uL (0.0-0.4); EOS % 2.7 % (1.0-4.0); HEMATOCRIT 40.3 % (42.0-52.0); HEMOGLOBIN 14.1 g/dl (14.0-18.0); LYMPH # 2.8 10*3/uL (1.3-4.4); LYMPH % 31.9 % (27.0-41.0); MEAN CELL VOLUME 94.4 fl (80.0-94.0); MEAN PLATELET VOLUME 10.3 fl (9.6-12.3); MONO # 0.8 10*3/uL (0.1-1.0); MONO % 9.3 % (3.0-9.0); NEUT # 4.9 10*3/uL (2.3-7.9); NEUT % 55.2 % (47.0-73.0); PLATELET COUNT AUTOMATED 224 10*3/uL (130-400); RED BLOOD COUNT 4.27 10*6/uL (4.50-5.90); RED CELL DISTRI WIDTH 11.9 % (0-14.5); WHITE BLOOD COUNT 8.8 10*3/uL (4.8-10.8)
[2019-10-03 04:28] LABS: ALBUMIN 4.2 gm/dl (3.1-4.5); BUN 12 mg/dl (7-24); CHLORIDE 107 mmol/L (98-107); CREATININE 0.83 mg/dL (0.70-1.30); LIPASE 160 U/L (73-393); POTASSIUM 3.4 mmol/L (3.5-5.1); SGOT/AST 20 IU/L (3-35); SODIUM 137 mmol/L (136-145); TOTAL PROTEIN 7.3 gm/dL (6.4-8.2)
[2019-10-03 04:31] LABS: ALKALINE PHOSPHATASE 85 U/L (45-117); SGPT/ALT 25 U/L (12-78)
[2019-10-03 04:37] LABS: BILIRUBIN NEGATIVE (NEGATIVE); BLOOD NEGATIVE (NEGATIVE); CLARITY CLEAR (CLEAR); COLOR YELLOW (YELLOW); GLUCOSE NEGATIVE (NEGATIVE); KETONE NEGATIVE (NEGATIVE); LEUKO ESTERASE NEGATIVE (NEGATIVE); NITRITE NEGATIVE (NEGATIVE); UROBILINOGEN 0.2 E.U./dl (0.2-1.0)
[2019-10-03 04:51] LABS: WBC 0-2 wbc/hpf (0-5)
== END 2019-10-03 06:43 | disposition home or self-care (01) ==
LOC: ED 03:49
PROVIDERS: Emergency Medicine Emergency Medical Services
DX: K59.01 Slow transit constipation (principal); I10 Essential (primary) hypertension; F17.200 Nicotine dependence, unspecified, uncomplicated; Z91.048 Other nonmedicinal substance allergy status; Z79.899 Other long term (current) drug therapy

== ENCOUNTER 2019-10-27 20:29 | Emergency (ER) | payer OTHER ==
[~2019-10-27] VITALS: Ht 175.2 cm; Wt 81.6 kg
[2019-10-27] MEDS ORDERED: TESSALON PERLE100 M1 PO (21:28)
[2019-10-27] MEDS ORDERED: CLARITIN10 MG PO (21:28)
[2019-10-27] MEDS ORDERED: FLONASE ALLERG9.9 ML NAS (21:28)
== END 2019-10-27 21:45 | disposition home or self-care (01) ==
LOC: ED 20:29
DX: J06.9 Acute upper respiratory infection, unspecified (principal); I10 Essential (primary) hypertension; Z91.048 Other nonmedicinal substance allergy status; Z79.899 Other long term (current) drug therapy

== ENCOUNTER 2019-11-22 20:16 | Emergency (ER) | payer OTHER ==
[~2019-11-22] VITALS: Ht 175.2 cm; Wt 81.6 kg
[~2019-11-22 20:16] MED LIST changes: +CLARITIN10 MG PO; +TESSALON PERLE100 M1 PO
== END 2019-11-22 21:40 | disposition home or self-care (01) ==
LOC: ED 20:16
DX: B34.9 Viral infection, unspecified (principal)

== ENCOUNTER 2019-12-01 21:40 | Emergency (ER) | payer OTHER ==
[~2019-12-01] VITALS: Ht 175.2 cm; Wt 77.1 kg
== END 2019-12-01 23:45 | disposition left against medical advice (07) ==
LOC: ED 21:40
DX: R42 Dizziness and giddiness (principal); R51 Headache; I10 Essential (primary) hypertension; F17.200 Nicotine dependence, unspecified, uncomplicated; Z91.048 Other nonmedicinal substance allergy status; Z79.899 Other long term (current) drug therapy

== ENCOUNTER 2019-12-17 19:21 | Emergency (ER) | payer OTHER ==
[~2019-12-17] VITALS: Ht 175.2 cm; Wt 72.6 kg
[2019-12-17] MEDS ORDERED: ALLEGRA ALLERG180 M2 PO (19:58)
[2019-12-17] MEDS ORDERED: FLONASE ALLERG9.9 ML NAS (19:58)
== END 2019-12-17 20:07 | disposition home or self-care (01) ==
LOC: ED 19:21
DX: J30.9 Allergic rhinitis, unspecified (principal); I10 Essential (primary) hypertension; Z91.048 Other nonmedicinal substance allergy status; Z79.899 Other long term (current) drug therapy

== ENCOUNTER 2019-12-20 21:26 | Emergency (ER) | payer OTHER ==
[~2019-12-20] VITALS: Ht 175.2 cm; Wt 72.6 kg
[~2019-12-20 21:26] MED LIST changes: +ALLEGRA ALLERG180 M2 PO
[2019-12-20] MEDS ORDERED: AMOXICILLIN500 M2 PO (21:47)
== END 2019-12-20 21:56 | disposition home or self-care (01) ==
LOC: ED 21:26
DX: J02.9 Acute pharyngitis, unspecified (principal); I10 Essential (primary) hypertension; F17.200 Nicotine dependence, unspecified, uncomplicated; Z91.048 Other nonmedicinal substance allergy status; Z79.899 Other long term (current) drug therapy

== ENCOUNTER 2019-12-26 21:43 | Emergency (ER) | payer OTHER ==
[~2019-12-26] VITALS: Ht 175.3 cm; Wt 72.6 kg
[2019-12-26] MEDS ORDERED: PAXIL10 MG PO (21:48)
[2019-12-26] MEDS ORDERED: LISINOPRIL20 MG PO (21:49)
[2019-12-26] MEDS ORDERED: PAXIL20 M1 PO (22:48)
[2019-12-26] MEDS ORDERED: ATIVAN1 MG PO (22:50)
== END 2019-12-26 23:33 | disposition home or self-care (01) ==
LOC: ED 21:43
DX: F41.1 Generalized anxiety disorder (principal); F43.0 Acute stress reaction; I10 Essential (primary) hypertension; F17.200 Nicotine dependence, unspecified, uncomplicated; Z91.048 Other nonmedicinal substance allergy status; Z79.899 Other long term (current) drug therapy

== ENCOUNTER 2019-12-28 20:35 | Emergency (ER) | payer OTHER ==
[~2019-12-28] VITALS: Ht 175.2 cm; Wt 72.6 kg
[~2019-12-28 20:35] MED LIST changes: +ATIVAN1 MG PO; +LISINOPRIL20 MG PO; +PAXIL10 MG PO; +PAXIL20 M1 PO
[2019-12-28] MEDS ORDERED: AMOXICILLIN500 M2 PO (21:20)
== END 2019-12-28 21:24 | disposition home or self-care (01) ==
LOC: ED 20:35
DX: J02.9 Acute pharyngitis, unspecified (principal); I10 Essential (primary) hypertension; F17.200 Nicotine dependence, unspecified, uncomplicated; Z91.048 Other nonmedicinal substance allergy status; Z79.899 Other long term (current) drug therapy

== ENCOUNTER 2020-01-18 18:37 | Emergency (ER) | payer OTHER ==
[~2020-01-18] VITALS: Ht 175.2 cm; Wt 72.6 kg
[2020-01-18 18:59] LABS: BASO # 0.1 10*3/uL (0.0-0.1); EOS # 0.4 10*3/uL (0.0-0.4); HEMATOCRIT 41.8 % (42.0-52.0); HEMOGLOBIN 14.4 g/dl (14.0-18.0); LYMPH # 1.9 10*3/uL (1.3-4.4); LYMPH % 26.5 % (27.0-41.0); MEAN CORPUSCULAR HGB 32.7 pg (27.0-31.0); MEAN CORPUSCULAR HGB CONC 34.4 g/dl (33.0-37.0); MEAN PLATELET VOLUME 9.5 fl (9.6-12.3); MONO # 0.7 10*3/uL (0.1-1.0); MONO % 9.5 % (3.0-9.0); NEUT # 4.2 10*3/uL (2.3-7.9); NEUT % 57.7 % (47.0-73.0); PLATELET COUNT AUTOMATED 193 10*3/uL (130-400); RED CELL DISTRI WIDTH 12.2 % (0-14.5); WHITE BLOOD COUNT 7.2 10*3/uL (4.8-10.8)
[2020-01-18 19:18] LABS: ALBUMIN 3.9 gm/dl (3.1-4.5); ALKALINE PHOSPHATASE 84 U/L (45-117); BUN 18 mg/dl (7-24); CHLORIDE 105 mmol/L (98-107); CREATININE 0.83 mg/dL (0.70-1.30); LIPASE 51 U/L (73-393); POTASSIUM 3.8 mmol/L (3.5-5.1); SGOT/AST 22 IU/L (3-35); SGPT/ALT 28 U/L (12-78); SODIUM 136 mmol/L (136-145)
[2020-01-18 19:24] LABS: TROPONIN I < 0.015 ng/ml (<0.045)
[2020-01-18] MEDS ORDERED: ZANTAC 150150 MG PO (19:51)
== END 2020-01-18 20:05 | disposition home or self-care (01) ==
LOC: ED 18:37
PROVIDERS: Nurse Practitioner Family
DX: K21.9 Gastro-esophageal reflux disease without esophagitis (principal); I10 Essential (primary) hypertension; F41.9 Anxiety disorder, unspecified; F17.200 Nicotine dependence, unspecified, uncomplicated; Z91.048 Other nonmedicinal substance allergy status; Z79.899 Other long term (current) drug therapy; Z79.2 Long term (current) use of antibiotics

== ENCOUNTER 2020-03-12 22:51 | Emergency (ER) | payer OTHER ==
[~2020-03-12] VITALS: Ht 175.2 cm; Wt 77.1 kg
[~2020-03-12 22:51] MED LIST changes: +ZANTAC 150150 MG PO
[2020-03-12 23:23] LABS: BASO # 0.1 10*3/uL (0.0-0.1); BASO % 0.8 % (0.0-1.0); EOS # 0.3 10*3/uL (0.0-0.4); EOS % 4.1 % (1.0-4.0); HEMATOCRIT 38.9 % (42.0-52.0); LYMPH # 2.6 10*3/uL (1.3-4.4); LYMPH % 31.7 % (27.0-41.0); MEAN CELL VOLUME 94.6 fl (80.0-94.0); MEAN CORPUSCULAR HGB 33.1 pg (27.0-31.0); MONO # 0.7 10*3/uL (0.1-1.0); MONO % 8.3 % (3.0-9.0); NEUT # 4.5 10*3/uL (2.3-7.9); NEUT % 54.9 % (47.0-73.0); PLATELET COUNT AUTOMATED 203 10*3/uL (130-400); RED BLOOD COUNT 4.11 10*6/uL (4.50-5.90); RED CELL DISTRI WIDTH 12.4 % (0-14.5); WHITE BLOOD COUNT 8.2 10*3/uL (4.8-10.8)
[2020-03-12 23:38] LABS: ALBUMIN 3.7 gm/dl (3.1-4.5); ALKALINE PHOSPHATASE 90 U/L (45-117); BUN 16 mg/dl (7-24); CHLORIDE 106 mmol/L (98-107); CREATININE 0.79 mg/dL (0.70-1.30); LIPASE 44 U/L (73-393); POTASSIUM 3.8 mmol/L (3.5-5.1); SGOT/AST 26 IU/L (3-35); SGPT/ALT 29 U/L (12-78); SODIUM 137 mmol/L (136-145); TOTAL PROTEIN 6.7 gm/dL (6.4-8.2)
[2020-03-12 23:54] LABS: BILIRUBIN NEGATIVE (NEGATIVE); BLOOD TRACE-INTACT (NEGATIVE); CLARITY SL CLOUDY (CLEAR); COLOR YELLOW (YELLOW); GLUCOSE NEGATIVE (NEGATIVE); KETONE NEGATIVE (NEGATIVE); LEUKO ESTERASE TRACE (NEGATIVE); NITRITE NEGATIVE (NEGATIVE); PH 8.5 (5.0-9.0); UROBILINOGEN 0.2 E.U./dl (0.2-1.0)
[2020-03-12 23:57] LABS: BACTERIA 1+
== END 2020-03-13 00:47 | disposition left against medical advice (07) ==
LOC: ED 22:51
PROVIDERS: Physician Assistant
DX: R10.31 Right lower quadrant pain (principal); I10 Essential (primary) hypertension; Z91.048 Other nonmedicinal substance allergy status; Z79.899 Other long term (current) drug therapy

== ENCOUNTER 2020-03-21 15:13 | Emergency (ER) | payer OTHER ==
[~2020-03-21] VITALS: Ht 175.2 cm; Wt 81.6 kg
== END 2020-03-21 15:47 | disposition home or self-care (01) ==
LOC: ED 15:13
DX: S60.221A Contusion of right hand, initial encounter (principal); I10 Essential (primary) hypertension; K21.9 Gastro-esophageal reflux disease without esophagitis; F41.9 Anxiety disorder, unspecified; F17.200 Nicotine dependence, unspecified, uncomplicated; Z88.8 Allergy status to other drugs, medicaments and biological substances; Z79.899 Other long term (current) drug therapy; W23.0XXA Caught, crushed, jammed, or pinched between moving objects, initial encounter; Y93.89 Activity, other specified; Y92.89 Other specified places as the place of occurrence of the external cause; Y99.8 Other external cause status

== ENCOUNTER 2020-05-12 00:36 | Emergency (ER) | payer OTHER ==
[~2020-05-12] VITALS: Ht 175.2 cm; Wt 86.2 kg
[2020-05-12] MEDS ORDERED: LISINOPRIL20 MG PO (01:04)
== END 2020-05-12 01:32 | disposition home or self-care (01) ==
LOC: ED 00:36
DX: I10 Essential (primary) hypertension (principal); Z79.899 Other long term (current) drug therapy

== ENCOUNTER 2020-05-13 23:40 | Emergency (ER) | payer OTHER ==
[~2020-05-13] VITALS: Ht 175.2 cm; Wt 77.1 kg
[2020-05-13 23:54] LABS: BASO # 0.1 10*3/uL (0.0-0.1); BASO % 0.7 % (0.0-1.0); EOS # 0.4 10*3/uL (0.0-0.4); HEMATOCRIT 41.6 % (42.0-52.0); LYMPH # 2.4 10*3/uL (1.3-4.4); LYMPH % 27.3 % (27.0-41.0); MEAN CELL VOLUME 93.9 fl (80.0-94.0); MEAN CORPUSCULAR HGB 32.5 pg (27.0-31.0); MEAN CORPUSCULAR HGB CONC 34.6 g/dl (33.0-37.0); MONO # 0.6 10*3/uL (0.1-1.0); MONO % 6.4 % (3.0-9.0); NEUT # 5.2 10*3/uL (2.3-7.9); NEUT % 60.4 % (47.0-73.0); PLATELET COUNT AUTOMATED 214 10*3/uL (130-400); RED BLOOD COUNT 4.43 10*6/uL (4.50-5.90); RED CELL DISTRI WIDTH 12.1 % (0-14.5); WHITE BLOOD COUNT 8.6 10*3/uL (4.8-10.8)
[2020-05-14 00:05] LABS: ACT PARTIAL THROMBO TIME 26.8 SECONDS (20.0-32.1)
[2020-05-14 00:10] LABS: ALKALINE PHOSPHATASE 92 U/L (45-117); BUN 18 mg/dl (7-24); CHLORIDE 107 mmol/L (98-107); CREATININE 0.86 mg/dL (0.70-1.30); POTASSIUM 4.2 mmol/L (3.5-5.1); SGOT/AST 15 IU/L (3-35); SGPT/ALT 23 U/L (12-78); SODIUM 138 mmol/L (136-145)
[2020-05-14 00:17] LABS: TROPONIN I < 0.015 ng/ml (<0.045)
== END 2020-05-14 01:20 | disposition home or self-care (01) ==
LOC: ED 23:40
PROVIDERS: Emergency Medicine
DX: K29.70 Gastritis, unspecified, without bleeding (principal); F41.9 Anxiety disorder, unspecified; I10 Essential (primary) hypertension; F17.200 Nicotine dependence, unspecified, uncomplicated; Z91.048 Other nonmedicinal substance allergy status; Z79.899 Other long term (current) drug therapy

== ENCOUNTER 2020-05-16 20:46 | Emergency (ER) | payer OTHER ==
[~2020-05-16] VITALS: Ht 175.2 cm; Wt 77.1 kg
== END 2020-05-16 21:47 | disposition home or self-care (01) ==
LOC: ED 20:46
DX: T25.122A Burn of first degree of left foot, initial encounter (principal); F41.9 Anxiety disorder, unspecified; I10 Essential (primary) hypertension; K21.9 Gastro-esophageal reflux disease without esophagitis; F17.200 Nicotine dependence, unspecified, uncomplicated; Z88.8 Allergy status to other drugs, medicaments and biological substances; Z79.899 Other long term (current) drug therapy; X08.8XXA Exposure to other specified smoke, fire and flames, initial encounter; Y93.89 Activity, other specified; Y92.89 Other specified places as the place of occurrence of the external cause; Y99.8 Other external cause status

== ENCOUNTER 2020-10-10 17:00 | Emergency (ER) | payer OTHER ==
[~2020-10-10] VITALS: Ht 175.2 cm; Wt 90.7 kg
== END 2020-10-10 18:20 | disposition left against medical advice (07) ==
LOC: ED 17:00
DX: F41.9 Anxiety disorder, unspecified (principal); Z53.21 Procedure and treatment not carried out due to patient leaving prior to being seen by health care provider

== ENCOUNTER 2020-10-29 23:24 | Emergency (ER) | payer OTHER ==
[~2020-10-29] VITALS: Ht 170.1 cm; Wt 81.6 kg
== END 2020-10-30 00:30 | disposition home or self-care (01) ==
LOC: ED 23:24
DX: F41.9 Anxiety disorder, unspecified (principal); I10 Essential (primary) hypertension; F17.210 Nicotine dependence, cigarettes, uncomplicated; Z71.6 Tobacco abuse counseling; Z79.899 Other long term (current) drug therapy

== ENCOUNTER 2021-01-05 00:47 | Emergency (ER) | payer OTHER ==
[~2021-01-05] VITALS: Ht 172.7 cm; Wt 90.7 kg
[2021-01-05 01:18] LABS: BASO # 0.1 10*3/uL (0.0-0.1); EOS # 0.4 10*3/uL (0.0-0.4); HEMATOCRIT 42.6 % (42.0-52.0); LYMPH # 2.7 10*3/uL (1.3-4.4); LYMPH % 36.7 % (27.0-41.0); MEAN CELL VOLUME 92.8 fl (80.0-94.0); MEAN CORPUSCULAR HGB 32.2 pg (27.0-31.0); MEAN CORPUSCULAR HGB CONC 34.7 g/dl (33.0-37.0); MEAN PLATELET VOLUME 9.5 fl (9.6-12.3); MONO # 0.7 10*3/uL (0.1-1.0); NEUT # 3.5 10*3/uL (2.3-7.9); NEUT % 48.2 % (47.0-73.0); PLATELET COUNT AUTOMATED 229 10*3/uL (130-400); RED BLOOD COUNT 4.59 10*6/uL (4.50-5.90); RED CELL DISTRI WIDTH 12.3 % (0-14.5); WHITE BLOOD COUNT 7.3 10*3/uL (4.8-10.8)
[2021-01-05 01:40] LABS: ALBUMIN 3.6 gm/dl (3.1-4.5); ALKALINE PHOSPHATASE 110 U/L (45-117); BUN 14 mg/dl (7-24); CHLORIDE 107 mmol/L (98-107); CREATININE 0.82 mg/dL (0.70-1.30); LIPASE 62 U/L (73-393); POTASSIUM 3.6 mmol/L (3.5-5.1); SGOT/AST 31 IU/L (3-35); SGPT/ALT 54 U/L (12-78); SODIUM 139 mmol/L (136-145)
[2021-02-06] MEDS ORDERED: ROBAXIN-750750 MG PO (21:31)
[2021-02-06] MEDS ORDERED: NAPROXEN250 MG PO (21:31)
== END 2021-01-05 03:09 | disposition home or self-care (01) ==
LOC: ED 00:47
PROVIDERS: Emergency Medicine
DX: R10.32 Left lower quadrant pain (principal); F41.9 Anxiety disorder, unspecified; K21.9 Gastro-esophageal reflux disease without esophagitis; I10 Essential (primary) hypertension; F17.200 Nicotine dependence, unspecified, uncomplicated; Z88.8 Allergy status to other drugs, medicaments and biological substances; Z79.899 Other long term (current) drug therapy

== ENCOUNTER 2021-01-25 14:54 | Emergency (ER) | payer OTHER ==
[~2021-01-25] VITALS: Wt 81.6 kg
[2021-01-25] MEDS ORDERED: [UNRECOGNIZED DRUG - OTHER] (23:38)
[2021-02-06] MEDS ORDERED: ROBAXIN-750750 MG PO (21:31)
[2021-02-06] MEDS ORDERED: NAPROXEN250 MG PO (21:31)
== END 2021-01-25 16:30 | disposition left against medical advice (07) ==
LOC: ED 14:54
DX: R05 Cough (principal); Z53.21 Procedure and treatment not carried out due to patient leaving prior to being seen by health care provider

== ENCOUNTER 2021-01-25 23:33 | Emergency (ER) | payer OTHER ==
[~2021-01-25] VITALS: Ht 175.2 cm; Wt 81.6 kg
[2021-01-25] MEDS ORDERED: [UNRECOGNIZED DRUG - OTHER] (23:38)
[2021-02-06] MEDS ORDERED: ROBAXIN-750750 MG PO (21:31)
[2021-02-06] MEDS ORDERED: NAPROXEN250 MG PO (21:31)
== END 2021-01-26 00:29 | disposition home or self-care (01) ==
LOC: ED 23:33
DX: J02.8 Acute pharyngitis due to other specified organisms (principal); I10 Essential (primary) hypertension; F41.9 Anxiety disorder, unspecified; F17.200 Nicotine dependence, unspecified, uncomplicated; Z91.048 Other nonmedicinal substance allergy status; Z79.899 Other long term (current) drug therapy

== ENCOUNTER 2021-02-01 12:24 | Emergency (ER) | payer OTHER ==
[~2021-02-01] VITALS: Wt 81.6 kg
[~2021-02-01 12:24] MED LIST changes: +[UNRECOGNIZED DRUG - OTHER]
[2021-02-01 12:51] LABS: BASO # 0.1 10*3/uL (0.0-0.1); BASO % 0.7 % (0.0-1.0); EOS # 0.2 10*3/uL (0.0-0.4); EOS % 2.7 % (1.0-4.0); HEMATOCRIT 43.9 % (42.0-52.0); LYMPH # 1.6 10*3/uL (1.3-4.4); LYMPH % 20.7 % (27.0-41.0); MEAN CELL VOLUME 91.6 fl (80.0-94.0); MEAN CORPUSCULAR HGB 31.5 pg (27.0-31.0); MEAN CORPUSCULAR HGB CONC 34.4 g/dl (33.0-37.0); MEAN PLATELET VOLUME 9.6 fl (9.6-12.3); MONO # 0.5 10*3/uL (0.1-1.0); NEUT # 5.1 10*3/uL (2.3-7.9); NEUT % 68.5 % (47.0-73.0); PLATELET COUNT AUTOMATED 256 10*3/uL (130-400); RED BLOOD COUNT 4.79 10*6/uL (4.50-5.90); RED CELL DISTRI WIDTH 11.9 % (0-14.5); WHITE BLOOD COUNT 7.5 10*3/uL (4.8-10.8)
[2021-02-01 13:06] LABS: ALBUMIN 3.6 gm/dl (3.1-4.5); ALKALINE PHOSPHATASE 104 U/L (45-117); BUN 11 mg/dl (7-24); CHLORIDE 105 mmol/L (98-107); CREATININE 0.83 mg/dL (0.70-1.30); POTASSIUM 4.2 mmol/L (3.5-5.1); SGOT/AST 10 IU/L (3-35); SGPT/ALT 23 U/L (12-78); SODIUM 138 mmol/L (136-145); TOTAL PROTEIN 7.3 gm/dL (6.4-8.2)
[2021-02-01] MEDS ORDERED: ZITHROMAX250 MG PO (13:49)
[2021-02-06] MEDS ORDERED: ROBAXIN-750750 MG PO (21:31)
[2021-02-06] MEDS ORDERED: NAPROXEN250 MG PO (21:31)
== END 2021-02-01 14:15 | disposition home or self-care (01) ==
LOC: ED 12:24
PROVIDERS: Nurse Practitioner
DX: J40 Bronchitis, not specified as acute or chronic (principal); I10 Essential (primary) hypertension; F41.9 Anxiety disorder, unspecified; F17.200 Nicotine dependence, unspecified, uncomplicated; Z79.899 Other long term (current) drug therapy; Z91.048 Other nonmedicinal substance allergy status

== ENCOUNTER 2021-04-30 17:28 | Emergency (ER) | payer OTHER ==
[~2021-04-30] VITALS: Ht 167.6 cm; Wt 90.7 kg
[~2021-04-30 17:28] MED LIST changes: +NAPROXEN250 MG PO; +ROBAXIN-750750 MG PO
== END 2021-04-30 18:59 | disposition home or self-care (01) ==
LOC: ED 17:28
DX: S20.20XA Contusion of thorax, unspecified, initial encounter (principal); Z79.899 Other long term (current) drug therapy; V89.2XXA Person injured in unspecified motor-vehicle accident, traffic, initial encounter; Y93.89 Activity, other specified; Y92.89 Other specified places as the place of occurrence of the external cause; Y99.8 Other external cause status